=== PATIENT | male | born 1950 | race Caucasian/White ===

== ENCOUNTER 2019-05-16 11:21 | Outpatient (CLI) | payer MEDICARE ==
--- NOTE | 2019-05-16 13:07 | RAD ---
LEFT FOOT 3 VIEWS: Date: 05/16/19 HISTORY: Foot pain. FINDINGS: Posterior enthesophyte from the calcaneus. Tarsals otherwise unremarkable. Mild degenerative change a t the tarsometatarsal joints. Mild DJD at the first MTP joint with slight hallux valgus deformity. No fracture or acute osseous abnormality. 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 Posterior enthesophyte from the calcaneus. No acute abno rmality. POS: [facility]
== END 2019-05-16 11:22 | disposition home or self-care (01) ==
LOC: NAV RAD 11:21
PROVIDERS: ATTEND Nurse Practitioner Family
DX: M79.675 Pain in left toe(s) (principal); M19.072 Primary osteoarthritis, left ankle and foot; M25.775 Osteophyte, left foot